=== PATIENT | female | born 1995 | race Hispanic/Latino ===

== ENCOUNTER 2018-07-16 10:38 | Emergency (ER) | payer SELFPAY ==
[2018-07-16] MEDS ORDERED: ONDANSETRON 4 MG/2 ML VIAL ONE (11:57)
[2018-07-16] MEDS ORDERED: FENTANYL CITR 100 MCG/2 ML ONE (11:57)
[2018-07-16 12:12] LABS: Absolute Lymphocytes (CBC) 1.6 K/uL (0.7-4.9); Absolute Monocytes 0.5 K/uL (0.1-1.3); Absolute Neutrophil 3.4 K/uL (1.8-8.0); Basophils % 1.1 % (0-1.3); Eosinophils % 1.6 % (0-4.4); Hematocrit 41.5 % (36.0-45.0); Lymphocytes % 28.6 % (15.3-44.8); MPV 9.4 fL (7.6-11.3); RBC Red Blood Cell Count 5.09 M/uL (3.86-4.86)
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
== END 2018-07-16 12:51 | disposition home or self-care (01) ==
LOC: ER 10:38
DX: G89.11 Acute pain due to trauma (principal); R10.10 Upper abdominal pain, unspecified; V49.50XA Passenger injured in collision with unspecified motor vehicles in traffic accident, initial encounter
CPT/HCPCS: 36415; 71260; 74177; 80048; 85025; 99285; J2405; J3010; Q9967